=== PATIENT | male | born 1990 | race Caucasian/White ===

== ENCOUNTER 2022-02-21 09:12 | Emergency (ER) | payer OTHER, SELFPAY ==
[2022-02-21] VITALS (9 sets, daily range): BP systolic 112–139; BP diastolic 65–71; PULSE 65–85; RESP 12–23; TEMP 37; O2SAT 95–100; BMI 26.2
--- NOTE | 2022-02-21 09:26 | DI.RAD.S_ITS ---
PROCEDURE: XR CHEST 1V INDICATIONS: chest pain TECHNIQUE: One view of the chest was acquired. COMPARISON: None. FINDINGS: Surgical changes and devices: None. Lungs and pleura: Lungs are clear. No pleural effusions or pneumothorax. Mediastinum: Mediastinal contours appear normal. Heart size is normal. Bones and chest wall: No suspicious bony lesions. Overlying soft tissues appear unremarkable. IMPRESSION: No acute cardiopulmonary findings Approved by: Suhas Gallardo M.D. on 02/21/2022 at 9:11
[2022-02-21 09:49] LABS: COVID19 -Nasal RAPID Negative (Negative)
--- NOTE | 2022-02-21 09:54 | ED.CHESTPAIN ---
HPI - Chest Pain General Chief Complaint: Chest Pain Stated Complaint: asthma, chest tight, freezing w/o fever, shaking Time Seen by Provider: 02/21/22 09:38 Source: patient Mode of arrival: Ambulatory Limitations: no limitations History of Present Illness HPI narrative: Patient is a healthy 31-year-old male who presents with some chest tightness. He actually says he was diagnosed with asthma after he got the COVID vaccine. He states he went on a bike ride felt some chest tightness a little bit shortness of breath went home took his inhaler in did pushups. He feels like he still he took a long hot shower he says that is very at the for him. He denies any cough he does not have any chest tightness any longer but still does not feel quite right. He is afebrile. Related Data Allergies Allergy/AdvReac Type Severity Reaction Status Date / Time No Known Drug Allergies Allergy Verified 02/21/22 09:26 Review of Systems Review of Systems Narrative: GENERAL: Denies chills, fatigue, malaise, fever, sweats, travel HEENT: Denies sinus pain, ear pain, sore throat, difficulty swallowing, neck pain RESPIRATORY: See HPI CARDIOVASCULAR: Denies chest pain, palpitations, orthopnea, edema GASTROINTESTINAL: Denies nausea, vomiting, abdominal pain, diarrhea, constipation, melena. : Denies dysuria, frequency, incontinence, hematuria, urinary retention, flank pain. MUSCULOSKELETAL: Denies weakness, joint pain, or bony pain SKIN: No rash, no erythema, no pruritus NEUROLOGIC: Denies weakness, dizziness, headache, numbness, change in speech, confusion PSYCHIATRIC: No concerning psychosocial issues. 12 point review of systems is negative except for those stated above and HPI Patient History Social History Smoking Status: Unknown if ever smoked Smoking Status: Unknown if ever smoked alcohol intake frequency: holidays/special occasions only Substance Use Type: does not use Exam Initial Vital Signs Initial Vital Signs: Vital Signs Temperature 98.6 F 02/21/22 09:20 Pulse Rate 79 02/21/22 09:20 Respiratory Rate 14 02/21/22 09:20 Blood Pressure 139/69 02/21/22 09:20 Pulse Oximetry 100 02/21/22 09:20 Oxygen Delivery Method 02/21/22 09:20 GENERAL: Alert pleasant 31-year-old male no acute distress and in no acute distress. HEENT: Head atraumatic,EOMI, pupils reactive, face symmetric, moist mucous membranes CARDIOVASCULAR: Regular rate and rhythm without murmurs, rubs or gallops. RESPIRATORY: Breath sounds equal bilaterally, no wheezes rales or rhonchi. Speaks in full sentences without any difficulty ABDOMEN: Soft, nontender. Normoactive bowel sounds all 4 quadrants. No guarding or rebound. EXTREMITIES: Normal range of motion, no clubbing or edema. Neurovascularly intact NEUROLOGICAL: Alert and oriented x4. SKIN: Warm, dry, no laceration, no petechiae, no rashes or lesions. Scores PERC Score Age greater than or equal to 50 years: No Heart rate greater than or equal to 100 bpm: No Room Air O2 Sat less than 95%: No Unilateral leg swelling: No Recent trauma or surgery: No Hemoptysis: No Prior PE or DVT: No Hormone Use: No Total PERC Score: 0 Course Orders Ordered: ED Orders 02/21/22 09:23 COVID19 -Nasal RAPID/Pre-Proc Stat 02/21/22 09:26 XR chest 1V Stat 02/21/22 09:43 EKG-12 Lead Stat 02/21/22 10:00 Complete Blood Count AUTO DIFF Stat Comprehensive Metabolic Panel Stat Lipase Stat Magnesium Stat Troponin & CK Cardiac Panel Stat Vital Signs Vital signs: Vital Signs - 8 hr 02/21/22 09:20 02/21/22 09:27 02/21/22 09:28 Temperature 98.6 F Pulse Rate 79 81 Respiratory Rate 14 16 Blood Pressure 139/69 126/65 Pulse Oximetry 100 98 Oxygen Delivery Method Room Air 02/21/22 09:28 02/21/22 09:30 02/21/22 09:30 Temperature Pulse Rate 81 76 Respiratory Rate 12 17 Blood Pressure 127/68 Pulse Oximetry 98 95 Oxygen Delivery Method 02/21/22 10:00 02/21/22 10:11 02/21/22 10:11 Temperature Pulse Rate 77 65 Respiratory Rate 17 20 Blood Pressure 132/68 Pulse Oximetry 96 97 Oxygen Delivery Method 02/21/22 10:30 02/21/22 10:30 02/21/22 11:00 Temperature Pulse Rate 82 Respiratory Rate Blood Pressure 132/66 112/70 Pulse Oximetry 98 Oxygen Delivery Method 02/21/22 11:00 02/21/22 11:30 02/21/22 11:30 Temperature Pulse Rate 81 85 Respiratory Rate 23 23 Blood Pressure 124/71 Pulse Oximetry 98 98 Oxygen Delivery Method MDM - Chest Pain Lab Data Result diagrams: 02/21/22 10:00 02/21/22 10:00 Labs: Lab Results 02/21/22 02/21/22 02/21/22 Range/Units 09:23 10:00 10:00 WBC 9.1 (4.5-11.0) X10^3/uL RBC 4.44 L (4.5-5.9) X10^6/uL Hgb 14.2 (13.5-17.5) g/dL Hct 40.3 L (41-53) % MCV 90.8 (80-100) fL MCH 32.0 (26-34) PG MCHC 35.3 (30-36) % RDW 12.9 (11.6-14.8) % Plt Count 216 (150-400) X10^3/uL Neut % (Auto) 74.4 (50-75) % Lymph % (Auto) 18.3 L (25-40) % [place] % (Auto) 6.5 (3-14) % Eos % (Auto) 0.4 L (2-4) % Baso % (Auto) 0.4 (0-2) % Neut # (Auto) 6800 (0107-1212) /uL Lymph # (Auto) 1700 (1686-7918) /uL [place] # (Auto) 600 (0-900) /uL Eos # (Auto) 0 (0-450) /uL Baso # (Auto) 0 (0-100) /uL Sodium 137 (137-145) mmol/L Potassium 3.7 (3.4-5.1) mmol/L Chloride 104 (98-107) mmol/L Carbon Dioxide 27 (22-32) mmol/L BUN 13 (9-20) mg/dL Creatinine 0.87 (0.66-1.25) mg/dL Estimated GFR > 60 (>60) mL/min BUN/Creatinine Ratio 14.9 (6-22) Glucose 103 H (70-100) mg/dL Calcium 9.1 (8.4-10.2) mg/dL Magnesium 2.3 (1.6-2.3) mg/dL Total Bilirubin 1.2 (0.2-1.3) mg/dL AST 26 (17-59) IU/L ALT 21 (<50) IU/L Alkaline Phosphatase 62 (38-126) U/L Total Creatine Kinase 110 (55-170) U/L CK-MB (CK-2) 0.55 (<2.37) ng/mL CK-MB (CK-2) Rel Index 0.5 L (1.5-5.0) % Troponin I < 0.012 (0.01-0.034) ng/mL Total Protein 7.0 (6.3-8.2) g/dL Albumin 4.3 (3.5-5.0) g/dL Globulin 2.7 (1.7-4.1) g/dL Albumin/Globulin Ratio 1.6 (1.0-2.8) Lipase 73 (23-300) U/L SARS-CoV-2 (PCR) Negative (Negative) Imaging Data Chest x-ray: Radiologist's Impression: tient: Rahat Evans MR#: [id number] : 1990 Acct:[id number] Age/Sex: 31 / M Date of Service: 02/21/22 Loc: ED Accession Number: [id number] ?? Procedure: XR chest 1V Ordering Provider: Maria C Tejeda D.O. PROCEDURE:? XR CHEST 1V ? INDICATIONS:? chest pain ? TECHNIQUE:? One view of the chest was acquired.? ? COMPARISON:? None. ? FINDINGS:? ? Surgical changes and devices:? None.? ? Lungs and pleura:? Lungs are clear.? No pleural effusions or pneumothorax.? ? Mediastinum:? Mediastinal contours appear normal.? Heart size is normal.? ? Bones and chest wall:? No suspicious bony lesions.? Overlying soft tissues appear unremarkable.? ? IMPRESSION:? No acute cardiopulmonary findings ? ? ? Approved by: Suhas Gallardo M.D. on 02/21/2022 at 9:11? ECG Data Interpretation: Normal sinus rhythm rate 60 p.r. interval 138 QRS [address] changes no T-wave inversion MDM Narrative Medical decision making narrative: At this time patient's blood work is overall reassuring chest x-ray is negative COVID test is negative. Symptoms more like asthma but he is certainly not wheezing here he is not hypoxic or in need of any sort of albuterol treatment. At does not need steroids at this time. He overall is complaining of being quite ill. Possible early upper respiratory infection however certainly not septic at this time. Unlikely to be pulmonary embolism symptoms not consistent, although it was considered. Discharge Plan Departure Patient Disposition: Home Clinical Impression: Atypical chest pain Activity Restrictions/Additional Instructions: *You have been diagnosed with atypical chest *What to do: At this time blood work and x-ray overall reassuring. COVID test is negative. *Continue to take medications as directed *Follow up with your primary care provider in 2-3 days or call [phone] *Return to ER if you should have increasing shortness of breath chest pain wheezing or any new, worsening or concerning symptoms Referrals: NADEEM Britton MD [Primary Care Provider] - Stand Alone Forms: Work Release Note Visit Report Forms: Patient Portal/API
[2022-02-21 10:20] LABS: Add Manual Diff / Slide Review NO; Basophils Absolute Auto 0 /uL (0-100); Basophils Percent Auto 0.4 % (0-2); Eosinophils Absolute Auto 0 /uL (0-450); Eosinophils Percent Auto 0.4 % (2-4); Hematocrit 40.3 % (41-53); Hemoglobin 14.2 g/dL (13.5-17.5); Lymphocytes Absolute Auto 1700 /uL (1100-4500); Lymphocytes Percent Auto 18.3 % (25-40); Mean Corpuscular HGB Conc 35.3 % (30-36); Mean Corpuscular Volume 90.8 fL (80-100); Monocytes Absolute Auto 600 /uL (0-900); Monocytes Percent Auto 6.5 % (3-14); Neutrophils Absolute Auto 6800 /uL (1500-7000); Neutrophils Percent Auto 74.4 % (50-75); Platelet Count 216 X10^3/uL (150-400); Red Blood Cell Count 4.44 X10^6/uL (4.5-5.9); Red Cell Distribution Width 12.9 % (11.6-14.8); White Blood Cell Count 9.1 X10^3/uL (4.5-11.0)
[2022-02-21 10:37] LABS: Alanine Aminotransferase 21 IU/L (<50); Albumin 4.3 g/dL (3.5-5.0); Albumin Globulin Ratio 1.6 (1.0-2.8); Alkaline Phosphatase 62 U/L (38-126); Aspartate Aminotransferase 26 IU/L (17-59); BUN Creatinine Ratio 14.9 (6-22); Bilirubin Total 1.2 mg/dL (0.2-1.3); Blood Urea Nitrogen 13 mg/dL (9-20); Calcium 9.1 mg/dL (8.4-10.2); Carbon Dioxide 27 mmol/L (22-32); Chloride 104 mmol/L (98-107); Creatine Kinase 110 U/L (55-170); Estimated Glomerular Filt Rate > 60 mL/min (>60); Globulin 2.7 g/dL (1.7-4.1); Glucose 103 mg/dL (70-100); HEMOLYSIS < 15 (0-50); Lipase 73 U/L (23-300); Magnesium 2.3 mg/dL (1.6-2.3); Potassium 3.7 mmol/L (3.4-5.1); Sodium 137 mmol/L (137-145)
[2022-02-21 10:47] LABS: Troponin I < 0.012 ng/mL (0.01-0.034)
[2022-02-21 10:53] LABS: CKMB % Relative Index 0.5 % (1.5-5.0); Creatine Kinase MB 0.55 ng/mL (<2.37)
== END 2022-02-21 11:38 | disposition home or self-care (01) ==
PROVIDERS: Emergency Provider Emergency Medicine
DX: R07.89 Other chest pain (principal); Z20.822 Contact with and (suspected) exposure to COVID-19
CPT/HCPCS: 36415; 71045; 80053; 82550; 82553; 83690; 83735; 84484; 85025; 87635; 93005; 93010; 99283; 99284; C9803

== ENCOUNTER → 2024-01-05 13:04 | Outpatient (CLI) | payer OTHER, SELFPAY ==
[2024-01-05 13:54] LABS: Add Manual Diff / Slide Review NO; Basophils Absolute Auto 0 /uL (0-100); Basophils Percent Auto 0.5 % (0-2); Eosinophils Absolute Auto 300 /uL (0-450); Eosinophils Percent Auto 3.2 % (2-4); Hematocrit 45.3 % (41-53); Hemoglobin 15.4 g/dL (13.5-17.5); Lymphocytes Absolute Auto 2200 /uL (1100-4500); Lymphocytes Percent Auto 25.9 % (25-40); Mean Corpuscular Hemoglobin 31.1 PG (26-34); Mean Corpuscular Volume 91.5 fL (80-100); Monocytes Absolute Auto 700 /uL (0-900); Monocytes Percent Auto 7.6 % (3-14); Neutrophils Absolute Auto 5400 /uL (1500-7000); Neutrophils Percent Auto 62.8 % (50-75); Platelet Count 243 X10^3/uL (150-400); Red Blood Cell Count 4.95 X10^6/uL (4.5-5.9); Red Cell Distribution Width 12.2 % (11.6-14.8); White Blood Cell Count 8.6 X10^3/uL (4.5-11.0)
[2024-01-05 14:14] LABS: Alanine Aminotransferase 45 IU/L (<50); Albumin 4.3 g/dL (3.5-5.0); Albumin Globulin Ratio 1.5 (1.0-2.8); Alkaline Phosphatase 71 U/L (38-126); Aspartate Aminotransferase 29 IU/L (17-59); BUN Creatinine Ratio 24.7 (6-22); Bilirubin Total 0.9 mg/dL (0.2-1.3); Blood Urea Nitrogen 20 mg/dL (9-20); C-Reactive Protein Quant < 0.5 mg/dL (<1.0); Calcium 9.2 mg/dL (8.4-10.2); Carbon Dioxide 30 mmol/L (22-32); Chloride 102 mmol/L (98-107); Estimated Glomerular Filt Rate > 60 mL/min (>60); Globulin 2.8 g/dL (1.7-4.1); Glucose 82 mg/dL (70-100); HEMOLYSIS < 15 (0-50); Potassium 4.4 mmol/L (3.4-5.1); Sodium 137 mmol/L (137-145); Total Protein 7.1 g/dL (6.3-8.2)
[2024-01-05 14:33] LABS: Erythrocyte Sedimentation Rate 1 MM/HR (0-15)
[2024-01-05 14:38] LABS: Thyroid Stimulating Hormone 1.09 uIU/mL (0.47-4.68)
== END ==
PROVIDERS: Referring Provider Internal Medicine Gastroenterology; Visit Provider Internal Medicine Gastroenterology
DX: R19.7 Diarrhea, unspecified (principal)
CPT/HCPCS: 36415; 80053; 83516; 84443; 85025; 85651; 86140